=== PATIENT | female | born 1995 | race Caucasian/White ===

== ENCOUNTER 2017-05-07 09:28 | Emergency (ER) | payer OTHER ==
--- NOTE | 2017-05-07 10:30 | ED Physician Documentation ---
PD HPI MHE - Stated complaint Stated Complaint: TOOK TOO MUCH MEDICATION - Chief complaint Chief Complaint: MHE - History obtained from History obtained from: Patient, Friend - History of Present Illness Primary symptom: Suicidal ideation Timing - onset: Last night Similar symptoms before: Diagnosis (depression) Recently seen: Not recently seen - Additional information Additional information: 21-year-old female with no prior psychiatric history has been depressed and feeling inadequate and last night she took 9 ibuprofen tablets in an attempt to hurt herself. She did develop some abdominal discomfort and some diarrhea she still has some abdominal discomfort today. She has a family history of suicide her father killed himself 6 years ago when he shot himself. The patient states that she has had several counseling sessions in high school related to this but she has not seen a counselor now. She has not been on medication previously. She describes excessive sleep and excessive eating and a feeling of depression related to feeling inadequate. She states that her job performance could be better but she does not feel she is threatened at her job. She is not currently involved in relationship she does have a roommate who describes her as an introvert. The patient's family is in [place] and she did grow up in a split family and graduated from high school. Review of Systems Constitutional: denies: Fever Eyes: denies: Decreased vision Ears: denies: Ear pain Nose: denies: Congestion Throat: denies: Sore throat Cardiac: denies: Chest pain / pressure Respiratory: denies: Dyspnea, Cough GI: reports: Abdominal Pain, Diarrhea. 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 - Present Medications Home Medications: Ambulatory Orders Medication Instructions Recorded Confirmed Sulfamethoxazole/Trimethoprim 1 each PO BID #10 tablet 05/07/17 [Sulfamethoxazole-Tmp Ds Tablet] buPROPion [Wellbutrin Sr] 150 mg PO DAILY #10 tablet 05/07/17 - Allergies Allergies/Adverse Reactions: Allergies Allergy/AdvReac Type Severity Reaction Status Date / Time No Known Drug Allergies Allergy Verified 05/07/17 09:41 - Social History Does the pt smoke?: No Smoking Status: Never smoker Does the pt drink ETOH?: No Does the pt have substance abuse?: No - Immunizations Immunizations are current?: Yes PD ED PE NORMAL - Vitals Vital signs reviewed: Yes (tachy and hypertensive) - General General: No acute distress, Well developed/nourished - HEENT HEENT: Atraumatic, PERRL, EOMI, Ears normal, Moist mucous membranes, Pharynx benign, Dentition benign - Neck Neck: Supple, no meningeal sign, No bony TTP - Cardiac Cardiac: RRR, No murmur - Respiratory Respiratory: No respiratory distress, Clear bilaterally - Abdomen Abdomen: Soft, Other (mild epigastric pain to palpation ) - Back Back: No CVA TTP, No spinal TTP - Derm Derm: Normal color, No rash - Extremities Extremities: No deformity, No edema - Neuro Neuro: Alert and oriented X 3, No motor deficit, No sensory deficit, Normal speech - Psych Psych: Normal mood, Normal affect Results - Vitals Vitals: Vital Signs - 24 hr 05/07/17 09:35 Temperature 36.5 C Heart Rate 112 H Respiratory 16 Rate Blood Pressure 144/86 H O2 Saturation 98 Oxygen O2 Source Room air - Labs Labs: Laboratory Tests 05/07/17 05/07/17 05/07/17 10:33 10:33 10:33 WBC 20.6 H RBC 5.07 Hgb 14.2 Hct 42.2 MCV 83.2 MCH 28.0 MCHC 33.6 RDW 13.4 Plt Count 326 MPV 8.1 Neut # 19.0 H Lymph # 1.0 L Sibley # 0.6 Eos # 0.0 Baso # 0.0 Absolute Nucleated RBC 0.00 Nucleated RBCs 0.0 Manual Slide Review Indicated WBC Morphology NORMAL APPEARANCE Platelet Estimate NORMAL (130-450,000) Platelet Morphology NORMAL APPEARANCE RBC Morph Micro Appear NORMAL APPEARANCE Sodium 138 Potassium 4.6 Chloride 104 Carbon Dioxide 21 Anion Gap 13.0 BUN 14 Creatinine 1.2 H Estimated GFR (MDRD) 57 L Glucose 88 Calcium 9.7 Total Bilirubin 0.5 AST 26 ALT 25 Alkaline Phosphatase 103 Total Protein 8.9 H Albumin 4.7 Globulin 4.2 Albumin/Globulin Ratio 1.1 Lipase 34 TSH 0.72 Urine Color Urine Clarity Urine pH Ur Specific Brutus Urine Protein Urine Glucose (UA) Urine Ketones Urine Occult Blood Urine Nitrite Urine Bilirubin Urine Urobilinogen Ur Leukocyte Esterase Urine RBC Urine WBC Urine WBC Clumps Ur Squamous Epith Cells Urine Bacteria Urine Casts Ur Microscopic Review Urine Culture Comments Urine HCG, Qual Salicylates < 6.0 Urine Opiates Screen Ur Oxycodone Screen Urine Methadone Screen Ur Propoxyphene Screen Acetaminophen < 10 L Ur Barbiturates Screen Ur Tricyclics Screen Ur Phencyclidine Scrn Ur Amphetamine Screen U Methamphetamines Scrn U Benzodiazepines Scrn Urine Cocaine Screen U Cannabinoids Screen Ethyl Alcohol < 5.0 05/07/17 05/07/17 11:00 11:00 WBC RBC Hgb Hct MCV MCH MCHC RDW Plt Count MPV Neut # Lymph # Sibley # Eos # Baso # Absolute Nucleated RBC Nucleated RBCs Manual Slide Review WBC Morphology Platelet Estimate Platelet Morphology RBC Morph Micro Appear Sodium Potassium Chloride Carbon Dioxide Anion Gap BUN Creatinine Estimated GFR (MDRD) Glucose Calcium Total Bilirubin AST ALT Alkaline Phosphatase Total Protein Albumin Globulin Albumin/Globulin Ratio Lipase TSH Urine Color YELLOW Urine Clarity CLEAR Urine pH 6.0 Ur Specific Brutus 1.010 Urine Protein NEGATIVE Urine Glucose (UA) NEGATIVE Urine Ketones NEGATIVE Urine Occult Blood TRACE-INTA Urine Nitrite NEGATIVE Urine Bilirubin NEGATIVE Urine Urobilinogen 0.2 (NORMAL) Ur Leukocyte Esterase SMALL H Urine RBC 0-5 Urine WBC >25 H Urine WBC Clumps PRESENT Ur Squamous Epith Cells FEW Squamous Urine Bacteria None Seen Urine Casts 0-2 WBC Casts Ur Microscopic Review INDICATED Urine Culture Comments INDICATED Urine HCG, Qual NEGATIVE Salicylates Urine Opiates Screen NEGATIVE Ur Oxycodone Screen NEGATIVE Urine Methadone Screen NEGATIVE Ur Propoxyphene Screen NEGATIVE Acetaminophen Ur Barbiturates Screen NEGATIVE Ur Tricyclics Screen NEGATIVE Ur Phencyclidine Scrn NEGATIVE Ur Amphetamine Screen NEGATIVE U Methamphetamines Scrn NEGATIVE U Benzodiazepines Scrn NEGATIVE Urine Cocaine Screen NEGATIVE U Cannabinoids Screen NEGATIVE Ethyl Alcohol PD MEDICAL DECISION MAKING - ED course Complexity details: reviewed old records, reviewed results, re-evaluated patient , considered differential, d/w patient, d/w family ED course: 21 y/o Female with no prior psychiatric history but a family history of suicide has taken an overdose of ibuprofen last night. She did this in an attempt to hurt herself. She is not suicidal today and is here with her roommate.She did call the crisis line today. The patient does have evidence of urinary tract infection and this does not appear to be related to her symptoms today. She is less suicidal today and she is able to speak to Dr. Eikelhymer the psychiatrist through tele-psych. The patient is no longer suicidal and appears to be in good ratna has protective support here with her in the emergency department will be with her 24 7. He recommends administration of Wellbutrin 150 SR daily and follow-up with mental health at [facility]. Departure - Departure Disposition: Home, Self Care Clinical Impression: Depressive disorder, Suicidal ideation Urinary tract infection Qualifiers: Urinary tract infection type: acute cystitis Hematuria presence: without hematuria Qualified Code(s): N30.00 - Acute cystitis without hematuria Condition: Stable Instructions: ED Depression Follow-Up: NICK VASQUEZ [Primary Care Provider] - Prescriptions: Sulfamethoxazole/Trimethoprim [Sulfamethoxazole-Tmp Ds Tablet] 1 each PO BID # 10 tablet buPROPion [Wellbutrin Sr] 150 mg PO DAILY #10 tablet
[2017-05-07 10:38] LABS: BASOPHILS % (AUTO) 0.2 %; HCT - HEMATOCRIT 42.2 % (37.0-47.0); HGB - HEMOGLOBIN 14.2 g/dL (12.0-16.0); LYMPHOCYTES % (AUTO) 4.8 %; MEAN CORPUSCULAR HGB CONC 33.6 g/dL (32.0-36.0); MEAN CORPUSCULAR VOLUME 83.2 fL (81.0-99.0); MEAN PLATELET VOLUME 8.1 fL (7.9-10.8); MONOCYTES # (AUTO) 0.6 10^3/uL (0.0-1.0); MONOCYTES % (AUTO) 3.1 %; NEUTROPHILS % (AUTO) 91.9 %; RED BLOOD COUNT 5.07 10^6/uL (4.20-5.40); RED CELL DISTRIBUTION WIDTH 13.4 % (12.0-15.0); UNCORRECTED WHITE BLOOD COUNT 20.6 x10^3/uL; WHITE BLOOD COUNT 20.6 x10^3/uL (4.8-10.8)
[2017-05-07 10:55] LABS: ALBUMIN/GLOBULIN RATIO 1.1 (1.0-2.2); BILIRUBIN,TOTAL 0.5 mg/dL (0.2-1.0); BUN - BLOOD UREA NITROGEN 14 mg/dL (6-20); CALCIUM 9.7 mg/dL (8.5-10.3); CARBON DIOXIDE - CO2 21 mmol/L (21-32); CHLORIDE 104 mmol/L (101-111); CREATININE 1.2 mg/dL (0.4-1.0); GFR - MDRD 57 (>89); GLUCOSE 88 mg/dL (70-100); LIPASE 34 U/L (22-51); POTASSIUM 4.6 mmol/L (3.5-5.0); SALICYLATE < 6.0 mg/dL; SODIUM 138 mmol/L (135-145); TOTAL PROTEIN 8.9 g/dL (6.7-8.2)
[2017-05-07 11:04] LABS: ACETAMINOPHEN < 10 ug/mL (10-30)
[2017-05-07 11:10] LABS: PLATELET ESTIMATE, MANUAL NORMAL (130-450,000) (NORMAL); PLATELET MORPHOLOGY NORMAL APPEARANCE (NORMAL)
[2017-05-07 11:11] LABS: WBC MORPHOLOGY (MULTIPLE) NORMAL APPEARANCE (NORMAL)
[2017-05-07 12:20] LABS: BILIRUBIN,URINE NEGATIVE (NEGATIVE)
[2017-05-07 12:25] LABS: HCG UR QUAL NEGATIVE; UA w/ MICROSCOPIC CHARGE YES
[2017-05-07 12:51] LABS: WBC,URINE >25 /HPF (0-5)
[2017-05-07 12:52] LABS: UR CULTURE IF IND INDICATED
[2017-05-07 16:13] VITALS: BP 127/68
== END 2017-05-07 16:12 | disposition home or self-care (01) ==
LOC: ED 09:28
DX: F32.9 Major depressive disorder, single episode, unspecified (principal); R45.851 Suicidal ideations; N30.00 Acute cystitis without hematuria
CPT/HCPCS: 36415; 80053; 80306; 80307; 80320; 80329; 81001; 81025; 83690; 84443; 85025; 87077; 87086; 87181; 99283; Q3014; 81003